=== PATIENT | female | born 1980 | race Asian ===

== ENCOUNTER 2019-08-28 22:16 | Emergency (ER) | payer MEDICAID, OTHER ==
[~2019-08-28] VITALS: Ht 162.6 cm; Wt 62.1 kg
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
--- NOTE | 2019-08-28 22:52 | NUR ---
PT TO CT. WILL MEDICATED WHEN PT RETURNS
[2019-08-28] MEDS ORDERED: DIAZEPAM 5 MG TABLET ONE (22:53)
[2019-08-28] MEDS ORDERED: KETOROLAC 30 MG/1 ML ONE (22:54)
[2019-08-28] MEDS ORDERED: ONDANSETRON ODT 4 MG ONE (22:54)
[2019-08-28] MEDS ORDERED: ONDANSETRON ODT 4 MG PO ONE (23:00)
[2019-08-28] MEDS ORDERED: KETOROLAC 30 MG/1 ML IM ONE (23:00)
[2019-08-28] MEDS ORDERED: DIAZEPAM 5 MG TABLET PO ONE (23:00)
[2019-08-28 23:34] VITALS: BP 122/68
--- NOTE | 2019-08-28 23:49 | NUR ---
Patient/Caregiver given discharge instructions and they have confirmed that they understand the instructions. Patient ambulatory with steady gait.
== END 2019-08-29 00:01 | disposition home or self-care (01) ==
LOC: ED 23:55
DX: S16.1XXA Strain of muscle, fascia and tendon at neck level, initial encounter (principal); V49.49XA Driver injured in collision with other motor vehicles in traffic accident, initial encounter; Y93.89 Activity, other specified; Y92.488 Other paved roadways as the place of occurrence of the external cause; Y99.8 Other external cause status
CPT/HCPCS: 72125; 96372; 99284; J1885; Q0162

== ENCOUNTER 2020-02-04 22:20 | Emergency (ER) | payer MEDICAID, OTHER ==
[~2020-02-04] VITALS: Ht 162.6 cm; Wt 62.9 kg
[2020-02-04 22:25] VITALS: BP 125/90
[2020-02-04] MEDS ORDERED: FAMOTIDINE 20 MG TABLET PO ONE (23:00)
[2020-02-04] MEDS ORDERED: FAMOTIDINE 20 MG TABLET ONE (23:16)
== END 2020-02-04 23:32 | disposition home or self-care (01) ==
LOC: ED 22:30
DX: L24.9 Irritant contact dermatitis, unspecified cause (principal)
CPT/HCPCS: 99284; J7512; Q0177

== ENCOUNTER 2020-04-05 21:19 | Emergency (ER) | payer MEDICAID ==
[~2020-04-05] VITALS: Ht 162.6 cm; Wt 63.5 kg
[2020-04-05 21:30] VITALS: BP 130/84
[2020-04-05] MEDS ORDERED: DEXAMETHASONE 4 MG TABLET PO ONE (22:00)
[2020-04-05] MEDS ORDERED: DEXAMETHASONE 4 MG TABLET ONE (22:12)
== END 2020-04-05 22:19 | disposition home or self-care (01) ==
LOC: ED 21:56
DX: R21 Rash and other nonspecific skin eruption (principal)
CPT/HCPCS: 99283